=== PATIENT | female | born 1995 | race Caucasian/White ===

== ENCOUNTER 2021-11-01 19:18 | Emergency (ER) | payer MEDICAID ==
[~2021-11-01] VITALS: Ht 175.3 cm; Wt 72.7 kg
[~2021-11-01 19:18] MED LIST: COROTSUS OT; CYCL-1 PO; POTA-82 PO
[2021-11-01 20:13] LABS: BASOPHILS % (AUTO) 0.4 % (0-1); EOSINOPHILS % (AUTO) 0.9 % (0-6); HEMATOCRIT 43.7 % (35.0-45.0); LYMPHOCYTES # (AUTO) 1.2 X10'3 (1.1-4.8); LYMPHOCYTES % (AUTO) 25.8 % (21-51); MEAN CORPUSCULAR HEMOGLOBIN 28.6 PG (27.0-31.0); MEAN CORPUSCULAR HGB CONC 34.4 g/dL (33.0-36.5); MEAN CORPUSCULAR VOLUME 83.3 FL (78-98); MEAN PLATELET VOLUME 7.2 FL (7.4-10.4); MONOCYTES # (AUTO) 0.4 X10'3 (0-0.9); MONOCYTES % (AUTO) 7.5 % (2-12); NEUTROPHILS # (AUTO) 3.1 X10'3 (1.8-7.7); NEUTROPHILS % (AUTO) 65.4 % (42-75); PLATELET COUNT 290 X10'3 (140-440); RED BLOOD COUNT 5.25 X10'6 (4.20-5.60); RED CELL DISTRIBUTION WIDTH 12.7 % (11.5-14.5); WHITE BLOOD COUNT 4.8 X10'3 (4.5-11.0)
[2021-11-01] MEDS: LORazepam 1 MG tablet PO ONE ×2 (20:20→20:57)
[2021-11-01] MEDS: ibuprofen tablet 400 MG TABLET PO ONE (20:20)
[2021-11-01 20:28] LABS: URINE AMPHETAMINE SCREEN NEGATIVE (Neg); URINE BARBITUATE SCREEN NEGATIVE (Neg); URINE BENZODIAZEPINES SCREEN NEGATIVE (Neg); URINE CANNABINOID SCREEN NEGATIVE (Neg); URINE COCAINE SCREEN NEGATIVE (Neg); URINE METHADONE SCREEN NEGATIVE (Neg); URINE OPIATE SCREEN NEGATIVE (Neg); URINE PHENCYCLIDINE SCREEN NEGATIVE (Neg)
[2021-11-01 20:29] LABS: ALANINE AMINOTRANSFERASE 49 U/L (12-78); ALBUMIN 4.3 G/DL (3.4-5.0); ALBUMIN/GLOBULIN RATIO 1.3 (1.1-1.5); ALKALINE PHOSPHATASE 80 IU/L (46-116); ANION GAP 13 (8-16); ASPARTATE AMINO TRANSFERASE 32 U/L (10-37); BILIRUBIN,TOTAL 0.3 MG/DL (0.1-1.0); BLOOD UREA NITROGEN 8 MG/DL (7-18); BUN/CREATININE RATIO 11.9 (6.6-38.0); CALCIUM 8.7 MG/DL (8.5-10.1); CHLORIDE 107 MMOL/L (99-107); CREATININE 0.67 MG/DL (0.40-0.90); GLUCOSE 105 MG/DL (70-104); POTASSIUM 3.6 MMOL/L (3.5-5.1); SODIUM 147 MMOL/L (135-145); TOTAL CARBON DIOXIDE 26.9 MMOL/L (24-32); TOTAL PROTEIN 7.6 G/DL (6.4-8.2); eGFR > 90 ML/MIN
[2021-11-01 20:32] LABS: HCG SERUM QL NEGATIVE
[2021-11-01 20:37] LABS: ETHANOL 0.269 GM/DL (0.0-0.010)
[2021-11-01 20:39] LABS: ACETAMINOPHEN < 2.0 UG/ML (10-30)
--- NOTE | 2021-11-01 20:40 | NUR ---
Patient very emotional and intoxicated, being verbally abusive to staff. She is demanding to be taken to [facility], we have explained that [facility] brought her here and we have no control over that. For the next 48hrs she is here or until [facility] clears her.
--- NOTE | 2021-11-01 21:10 | NUR ---
assumed care of patient. CN aware of [id number] and need for 1:1. patient is cooperative with thisRN currently but not with tech or previous RN. Previous RN placed nicotine patch per md order per patient request. The room has been prepared for mental health precautions, no cords and containers and equipment removed. Will CTM.
[2021-11-01] MEDS: nicotine 14mg patch - 24hr TD ONE (21:16)
--- NOTE | 2021-11-01 22:18 | NUR ---
patient asleep left lateral recumbent with zero s+sx distress and pain
--- NOTE | 2021-11-01 23:15 | NUR ---
NO CHANGE FROM PREVIOUS ASSESSMENT. WILL CTM
--- NOTE | 2021-11-02 00:31 | NUR ---
patient remains asleep no signs of distress
--- NOTE | 2021-11-02 02:00 | NUR ---
Patient sleeping comfortably, laying on stomach. rise and fall of chest witnessed. Respirations even and regular.
--- NOTE | 2021-11-02 03:11 | NUR ---
patient appears asleep no distress
--- NOTE | 2021-11-02 03:36 | NUR ---
patient woke and went to the bathroom and back to room. patient requested zofran and tylenol. notified MD. see new orders and MAR
[2021-11-02] MEDS: acetaminophen 325mg tablet PO ONE (03:37)
[2021-11-02] MEDS: ondansetron 4mg rapidly disintigrating tab PO ONE (03:37)
--- NOTE | 2021-11-02 04:31 | NUR ---
pt appears asleep with no s+sx distress or pain
--- NOTE | 2021-11-02 05:36 | NUR ---
pt appears to remain asleep - no s+sx of distress or pain
--- NOTE | 2021-11-02 06:20 | NUR ---
PATIENT RECEIVED SLEEPING IN BED THIS MORNING. RESPIRATIONS EVEN, UNLABORED. NO S/S OF DISTRESS. WILL CONTINUE TO MONITOR.
[2021-11-02] MEDS ORDERED: ibuprofen tablet 400 MG TABLET PO PRN (06:45)
[2021-11-02] MEDS: ibuprofen tablet 400 MG TABLET PO ONE (07:23)
[2021-11-02] MEDS: QUEtiapine 25mg tablet PO STA (07:23)
--- NOTE | 2021-11-02 07:25 | NUR ---
PATIENT AMBULATORY TO THE RESTROOM WITH STEADY GAIT. PATIENT C/O FEELINGS OF ANXIETY AND BILATERAL ARM PAIN R/T RECENT FALL. SHE WAS GIVEN PRN SEROQUEL FOR ANXIETY AND PRN MOTRIN FOR PAIN AT 0723. PATIENT OBSERVED SLEEPING ON HER RIGHT SIDE IN HER ROOM AT THIS TIME. NO APPARENT DISTRESS NOTED. WILL CONTINUE TO MONITOR.
--- NOTE | 2021-11-02 07:36 | NUR ---
PACKET FAXED TO [facility]
--- NOTE | 2021-11-02 08:35 | NUR ---
Patient sitting in bed eating breakfast. She was cooperative with assessment. No s/s of distress. No change noted at this time.
[2021-11-02] MEDS ORDERED: SERT50TA PO (08:39)
--- NOTE | 2021-11-02 09:06 | NUR ---
Chicho BOUDREAUX, evaluating patient. No distress observed. Continue to monitor.
--- NOTE | 2021-11-02 10:30 | NUR ---
PATIENT NOTED SLEEPING ON HER RIGHT SIDE IN HER ROOM. RESPIRATIONS EVEN, UNLABORED. NO S/S OF DISTRESS.
--- NOTE | 2021-11-02 11:02 | NUR ---
RN gave patient a sandwich as patient was requesting snacks. No distres observed. Continue to monitor.
--- NOTE | 2021-11-02 11:22 | NUR ---
Met with patient in regards to alcohol use and to see if patient wanted any resources for treatment options. Patient declined any resources and stated she doesn't have a problem with drinking and that she just had to much to drink last night. I told patient if she changed her mind to let the nurse know and that I would help her.
--- NOTE | 2021-11-02 13:30 | NUR ---
PATIENT OBSERVED SITTING IN HER ROOM AT THIS TIME. NO COMPLAINTS OF S/S OF DISTRESS NOTED. WILL CONTINUE TO MONITOR.
--- NOTE | 2021-11-02 13:36 | NUR ---
[id number], Bhanu [phone].
[2021-11-02 13:52] VITALS: BP 119/86
[2021-11-02] MEDS ORDERED: sertraline 50mg tablet PO SCH (21:00)
== END 2021-11-02 14:23 ==
LOC: ER 19:18
DX: F10.929 Alcohol use, unspecified with intoxication, unspecified (principal); Z20.822 Contact with and (suspected) exposure to COVID-19; I10 Essential (primary) hypertension; X83.8XXA Intentional self-harm by other specified means, initial encounter; Y93.89 Activity, other specified; Y92.89 Other specified places as the place of occurrence of the external cause; Y99.8 Other external cause status; Y90.8 Blood alcohol level of 240 mg/100 ml or more
CPT/HCPCS: 36415; 73610; 80053; 80305; 80320; 80329; 84443; 84703; 85025; 87635; 99285; C9803